=== PATIENT | male | born 1985 | race Caucasian/White ===

== ENCOUNTER 2019-11-16 14:19 | Emergency (ER) | payer SELFPAY ==
[~2019-11-16] VITALS: Ht 180.3 cm; Wt 96.2 kg
--- NOTE | 2019-11-16 14:28 | NUR ---
pt [place] from [place], presents w/ r hand pain w/ noted superficial laceration s/p punching a glass window. pt states having auditory hallucination and acting psychotic. verbally responsive. lapd at bedside awaiting md burgos.
--- NOTE | 2019-11-16 14:45 | NUR ---
dr wick at bedside for eval.
[2019-11-16] MEDS ORDERED: TDAP [DIPH/PERTUSSIS/TET] 0.5 ML VIAL IM ONE (15:38)
[2019-11-16] MEDS ORDERED: OLANZAPINE 5 MG TABLET ONE (15:38)
[2019-11-16] MEDS ORDERED: BACITRACIN ZINC OINT PACKET 1 EA PACKET TP ONE (15:38)
[2019-11-16] MEDS: BACITRACIN ZINC OINT PACKET 1 EA PACKET TP ONE (15:48)
[2019-11-16] MEDS: TDAP [DIPH/PERTUSSIS/TET] 0.5 ML VIAL IM ONE (15:48)
[2019-11-16] MEDS: OLANZAPINE 5 MG TABLET PO ONE (15:48)
--- NOTE | 2019-11-16 16:04 | NUR ---
Per [employer] officers, waiting for another unit to escort the patient
--- NOTE | 2019-11-16 16:41 | NUR ---
Patient discharged in custody of [employer] Officer Charles of [facility] stable condition. Written and verbal after care instructions given.
[2019-11-16 16:43] VITALS: BP 147/96
== END 2019-11-16 16:43 ==
LOC: ER 14:21
DX: S60.511A Abrasion of right hand, initial encounter (principal); F28 Other psychotic disorder not due to a substance or known physiological condition; F31.9 Bipolar disorder, unspecified; W25.XXXA Contact with sharp glass, initial encounter; Y93.89 Activity, other specified; Y92.89 Other specified places as the place of occurrence of the external cause; Y99.8 Other external cause status
CPT/HCPCS: 73130-TC; 90715